=== PATIENT | female | born 1960 | race Caucasian/White ===

== ENCOUNTER 2016-10-21 06:32 | Inpatient (IN) | payer OTHER ==
--- NOTE | ~2016-10-21 | EKG ---
PATIENT: KASHMIR SAUCEDO UNIT #: [id number] Ventricular Rate: 114 BPM Atrial Rate: 114 BPM P-R Interval: 156 ms QRS Duration: 94 ms Q-T Interval: 320 ms QTC Calculation(Bezet): 441 ms P [place]: 40 degrees Calculated R [place]: 5 degrees Calculated T [place]: 41 degrees Diagnosis Line: Sinus tachycardia Diagnosis Line: Low voltage QRS Diagnosis Line: Nonspecific ST abnormality Otherwise normal ECG Diagnosis Line: When compared with ECG of 13-JAN-2014 06:18, Diagnosis Line: Criteria for Septal infarct are no longer Present Diagnosis Line: Confirmed by ALVARO MARTINS MD ([id number]) on 10/22/2016 Diagnosis Line: 12:04:18 PM INTERPRETING MD: ELIEZER REED
--- NOTE | ~2016-10-21 | HP ---
Unit #: [id number] #: [id number] Patient: KASHMIR SAUCEDO [id number] [address] [address] [id number] I MR#: [id number] NAME: KASHMIR SAUCEDO ROOM: 07363 Age: 56 Sex: F Admission Date: 10/21/2016 : 1960 Attending Physician: Lorie Rashid M.D. Primary Care Physician: No Primary Care Physician HISTORY AND PHYSICAL CHIEF COMPLAINT Sick all day, fever. HISTORY OF PRESENT ILLNESS The patient is a 56-year-old female with a past medical history of hypertension, hyperlipidemia, diabetes, Sjogren syndrome, who presented to the emergency department for evaluation of the above. The patient states that she has had a three day history of increasing shortness of breath and nonproductive cough. She also reports fever and chills. She states that she has had some chest discomfort in association with the cough. She denies any vomiting or diarrhea. No urinary symptoms. Upon arrival in the emergency department, the patient's temperature was 102.9, pulse 120, respirations 21, oxygen saturation was 96% on room air. Chest x-ray showed nothing acute but clinically she appears to have pneumonia. She was given Rocephin and azithromycin. Also of note, lactic acid is 2.7. She is being admitted to [facility] for evaluation and further treatment. PAST MEDICAL HISTORY 1. Diabetes. 2. Hypertension. 3. Hyperlipidemia. 4. Sjogren syndrome, maintained on chronic prednisone, followed by a restaurant assistant (the patient doesn't recall the name). PAST SURGICAL HISTORY Hysterectomy. SOCIAL HISTORY The patient lives with her . There is no tobacco or alcohol use. She is unemployed. FAMILY HISTORY Notable for her dad having diabetes. ALLERGIES No known allergies. HOME MEDICATIONS 1. Prednisone 5 mg daily. 2. Zestoretic 20/25 daily. 3. Glipizide 10 mg twice daily. Unit #: [id number] #: [id number] Patient: KASHMIR SAUCEDO 4. Metoprolol 25 mg twice daily. 5. Humalog mix 75/25 twice daily. REVIEW OF SYSTEMS A complete review of systems was negative except as indicated in the HPI. DIAGNOSTIC STUDIES CARDIOVASCULAR: EKG shows sinus tachycardia with a rate of 114 beats per minute. IMAGING: Chest x-ray shows nothing acute. LABORATORY: Troponin is less than 0.05. Rapid flu screen is negative. Complete blood count is notable for platelets of 134. INR is 1. Comprehensive metabolic panel notable for glucose of 212, BNP is 100, lactic acid 2.7. PHYSICAL EXAMINATION VITAL SIGNS: Temperature is 102.9, pulse 120, respirations 21, blood pressure 171/124, most recently 109/53. Oxygen saturation is 96% on room air. GENERAL: The patient is a female who is awake and alert, in no acute distress. HEENT: The head is atraumatic. Mucous membranes are moist. NECK: Supple. Trachea is midline. CARDIOVASCULAR: Regular rate and rhythm. LUNGS: Demonstrate very few scattered rhonchi. Breathing is not labored with conversation. ABDOMEN: Soft, nontender with bowel sounds present in all four quadrants. EXTREMITIES: Nontender with no pedal edema. NEURO: The patient is awake and alert. She follows commands. PSYCH: Mood and affect are normal. The patient is cooperative. SKIN: Skin of examined areas is warm and dry. ASSESSMENT The patient is a 56-year-old female with: 1. Pneumonia, community-acquired: The patient received Rocephin and azithromycin in the emergency department. 2. Sepsis with lactic acid of 2.7: The patient received 2 L of normal saline in the emergency department. 3. Hypertension. 4. Hyperlipidemia. 5. Diabetes. 6. Sjorgren syndrome, maintained on chronic prednisone. 7. Morbid obesity with a body mass index of 44 present on admission. PLAN 1. Admit to intermediate level. 2. Healthy heart consistent carb diet. 3. Blood culture x2. 4. Sputum culture and sensitivity. 5. Oxygen 2 to 4 L to maintain saturations greater than 92%. 6. Procalcitonin level. 7. Rocephin and azithromycin for community-acquired pneumonia pending further workup. 8. Duo-Nebs. Unit #: [id number] #: [id number] Patient: KASHMIR SAUCEDO 9. Mucinex 600 mg p.o. b.i.d. 10. Serial cardiac enzymes. 11. Hemoglobin A1c. 12. Low dose sliding scale insulin with Accu-Cheks. 13. Sepsis protocol with repeat lactic acid. 14. SCDs for DVT prophylaxis. 15. Additional workup and consultants based on above. 16. Repeat labs in the morning. Dictated by Caroline Mireles/shaka TD: 10/21/2016 12:05 JOB #: [id number] HISTORY AND PHYSICAL X Lorie Rashid MD HISTORY AND PHYSICAL
--- NOTE | ~2016-10-21 | CT16 ---
[facility] A Service of [facility] [place] RADIOLOGY TEXT RESULTS PATIENT: KASHMIR SAUCEDO LOCATION: [facility] : 60 UNIT #: [id number] AGE: [address]: JEAN PAUL MEDINA MD SEX: F ORDER DR: [id number] [place], [place] [address] [id number] I MR#: [id number] #: [id number] NAME: KASHMIR SAUCEDO : 1960 SEX: F STUDY DATE/TIME: 10/22/2016 18:26 UNIT: [facility] PCU ROOM: [facility] STUDY DESCRIPTION: CT Angio Chest for PE Attending Physician: Jean Paul Medina M.D. Ordering Physician: Long Rodriguez M.D. Primary Care Physician: Primary Care Physician No MEDICAL IMAGING REPORT This report is preliminary unless electronic signature is present EXAM CTA chest PE protocol INDICATION Shortness of air. Fever for the past 4 days. PROCEDURE Contrast-enhanced CTA of the chest attention on opacification of the pulmonary arteries. Coronal 3-D MIP and sagittal reformatted images were reconstructed and submitted. 80 mL of Isovue-370. COMPARISON None. TECHNIQUE This CT examination was performed with one or more of the following radiation dose reduction techniques: automatic exposure control, adjustment of mA and/or kV according to patient size, and iterative reconstruction. FINDINGS No evidence for pulmonary embolus. No evidence for acute aortic injury. No adenopathy. Probable hepatic steatosis. No acute findings in the included upper abdomen. No aggressive appearing bone lesion. No dense consolidation. IMPRESSION 1. No acute findings in the chest. No evidence for pulmonary embolus. 2. Suspected hepatic steatosis. Dictated by... Ernie Dash M.D. [facility] A Service [facility] RADIOLOGY TEXT RESULTS PATIENT: KASHMIR SAUCEDO LOCATION: [facility] : 60 UNIT #: [id number] AGE: [address]: JEAN PAUL MEDINA MD SEX: F ORDER DR: THIS IS AN ELECTRONICALLY VERIFIED REPORT Ernie Dash M.D. at 10/25/2016 7:22 AM ANNIE/yesika TD: 10/23/2016 12:24 JOB #: [id number] MEDICAL IMAGING REPORT COPY
--- NOTE | ~2016-10-21 | CO ---
Unit #: [id number] #: [id number] Patient: KASHMIR FELIX [id number] [address] [place], [place] [address] [id number] I MR#: [id number] NAME: KASHMIR FELIX ROOM: 312 Age: 56 Sex: F Admission Date: 10/21/2016 : 1960 Attending Physician: Amy Medina M.D. CONSULTATION REPORT HISTORY OF PRESENT ILLNESS Ms. Felix is a 56-year-old white female, who presented because of fever, cough, congestion, shortness of breath with wheezing that has been worse over the last 2 days. She says that she had been somewhat ill over the last few days, but worsened over the last 3 days. She says she has had some wheezing. She has a history of Sjogren syndrome is maintained on chronic prednisone. She says that her child has been ill with a similar upper respiratory and respiratory illness as has her son. In the emergency room, temperature is recorded at 102.9, pulse was 120, respiratory rate was 21, room air saturation was 96%. Chest x-ray showed somewhat small lung lehman, no gross consolidation, radiologist read has some increased markings. Lactic acid was 2.7. Procalcitonin was 0.22. White blood cell count was 5700, platelet count was 134 it has dropped to 112 today and white blood cell count has dropped to 3.5 today. There were 20% monocytes listed, 4% bands were noted. Influenza A and B were negative. PAST MEDICAL HISTORY Significant for diabetes, hypertension, hyperlipidemia. Sjogren syndrome maintained on prednisone 5 mg daily, followed by asset protection assistant, she does not know the name. PAST SURGICAL HISTORY Hysterectomy. ALLERGIES None known. HOME MEDICATIONS Prednisone 5 mg daily, Zestoretic, glipizide, metoprolol, and Humalog Mix. FAMILY HISTORY Notable for diabetes. SOCIAL HISTORY Lives with . No tobacco or alcohol or illicit drugs. She is currently unemployed. REVIEW OF SYSTEMS Ten point system, otherwise negative than in HPI. She denied snoring except occasionally on her back. Denied excessive daytime sleepiness or witnessed apneic episodes. PHYSICAL EXAMINATION Unit #: [id number] #: [id number] Patient: KASHMIR FELIX GENERAL: Obese female, in no distress. VITAL SIGNS: Blood pressure is 151/80, pulse is 84, respiratory rate is 18, afebrile, T-max 102.7, currently 98.6. HEENT: Normocephalic and atraumatic. Pupils are equal, round, and reactive. Sclerae nonicteric. Nasal passages patent. Posterior pharynx crowded. Mallampati IV. NECK: Thick, supple, trachea midline. No cervical or supraclavicular lymphadenopathy. LUNGS: Reveal some crackles in the bases. Slightly prolonged expiratory phase. No wheezing. CARDIAC: Regular rate and rhythm. Could not appreciate murmur, rub, or gallop. ABDOMEN: Nontender. Bowel sounds present. No hepatosplenomegaly. EXTREMITIES: Without clubbing, cyanosis, or edema. NEUROLOGIC: Awake, alert, and oriented x3. Cranial nerves grossly intact. Muscle strength symmetric. SKIN: Warm and dry. NEUROLOGIC: Affect calm. No swollen joints. DIAGNOSTIC STUDIES LABORATORY RESULTS: As noted. IMPRESSION 1. Possible pneumonia. 2. History of asthma apparently with history of bronchospasm, but was not noted on emergency room note. 3. Probable sepsis syndrome. 4. Sjogren syndrome, on chronic prednisone. 5. Hypertension. 6. Morbid obesity. 7. Possible obstructive sleep apnea with markedly elevated BMI, large neck size, and upper airway consistent with sleep apnea, although she denies symptoms. PLAN Would agree with broad-spectrum antibiotics. Doubt MRSA as the organism. Would be more concerned about atypical organisms and virus, but okay to go on and cover for MRSA. At this time, we would also cover for Legionella with Levaquin. We will check antigens for strep and Legionella, check respiratory virus panel. She has been scheduled for chest CT scan to see if there are any ground glass infiltrates that are not really evident on current chest x-ray. We will cover with stress steroids and Solu-Cortef. Agree with DVT prophylaxis. We will make further recommendations pending this. Dictated by... Long Rodriguez M.D. DURAN/anthony TD: 10/23/2016 02:06 JOB #: [id number] Unit #: [id number] #: [id number] Patient: LEWISKASHMIR CONSULTATION REPORT X Long Rodriguez MD CONSULTATION REPORT
--- NOTE | ~2016-10-21 | BMI ---
[facility] Nutrition Therapy DATE: 10/22/16 Patient: KASHMIR BROWNEWALDOArmaan Physician: PETEY Address: [address] [place] [address] Room/Bed: [address] [place] [address], Zip: [place] [address] Admit Date: 10/21/16 Date of : [birth year] Height: 5 2 Weight: 246 111.6 HIGH BMI NOTE: ANTHROPOMETRICS: HT: 62" WT: 111.6 KG BMI: 45 INTERVENTION: 1. NPO RECOMMENDATIONS: 1. ONCE MEDICALLY FEASIBLE ADVANCE THE PT TO A HH/CC DIET TO PROMOTE GRADUAL WEIGHT LOSS. Respectfully, SHAUN GRANT RD, LD [employer] and [employer] Services [facility] cc: client file
--- NOTE | ~2016-10-21 | CR72 ---
[facility] A Service of [facility] RADIOLOGY TEXT RESULTS PATIENT: KASHMIR SAUCEDO LOCATION: [facility] 312-01 : 60 UNIT #: [id number] AGE: [address]: Lorie Rashid MD SEX: F ORDER DR: [id number] [facility] [address] [facility]. [place], [place] [address] [id number] I MR#: [id number] Acc #: [id number] NAME: KASHMIR SAUCEDO : 1960 SEX: F STUDY DATE/TIME: 10/21/2016 6:30 UNIT: CEDOF ROOM: 13077 STUDY DESCRIPTION: CR Chest Single View Portable Attending Physician: Lorie Rashid M.D. Ordering Physician: Fransisco Lunsford M.D. Primary Care Physician: Primary Care Physician No MEDICAL IMAGING REPORT This report is preliminary unless electronic signature is present EXAM Portable chest 1 view 10/21/2016 COMPARISON 01/13/2014. HISTORY Dyspnea, short of air and cough for 2 days. Fever. FINDINGS Submaximal inspiration. Mild interstitial prominence, though whether that is related to inspiratory effort is unclear. There is no consolidation, effusion or pneumothorax. Heart size upper limits normal. Dictated by... Srikanth Lee M.D. THIS IS AN ELECTRONICALLY VERIFIED REPORT Srikanth Lee M.D. at 10/21/2016 3:35 PM ARI/yesika TD: 10/21/2016 12:52 JOB #: [id number] MEDICAL IMAGING REPORT COPY
--- NOTE | ~2016-10-21 | DS ---
Unit #: [id number] #: [id number] Patient: KASHMIR SAUCEDO [id number] [address] [address] [id number] I MR#: [id number] NAME: KASHMIR SAUCEDO ROOM: 312 Age: 56 Sex: F Admission Date: 10/21/2016 : 1960 Discharge Date: Attending Physician: Airam Flores M.D. Primary Care Physician: No Primary Care Physician DISCHARGE SUMMARY DISCHARGE DIAGNOSES 1. Acute viral syndrome. 2. Sepsis, resolved. 3. Asthma with exacerbation with bronchospasm. 4. Acute bronchitis. 5. No pneumonia. 6. Hypertension. 7. Hyperlipidemia. 8. Diabetes mellitus type 2. 9. Sjogren syndrome. 10. Morbid obesity. 11. Possible obstructive sleep apnea. CONSULTATIONS Dr. Rodriguez. PROCEDURES None. DIAGNOSTIC TESTING LAB DATA: Glucose 183. Sputum culture growing normal respiratory grisel. Urine culture negative. Sodium 138, potassium 3.5, creatinine 0.7. IMAGING: CT angiogram of chest shows no acute findings. ALLERGIES None. DISCHARGE MEDICATIONS 1. Prednisone tapering dose. After completing tapering dose, the patient needs to go back to 5 mg p.o. daily, which is her home dose. 2. Lisinopril/Hydrochlorothiazide 20/25 mg 1 table p.o. daily. 3. Lopressor 25 p.o. b.i.d. 4. Humalog mix 75/25 pen 20 units subcu b.i.d. 5. Zithromax 250 mg p.o. daily. 6. Glipizide 10 mg p.o. b.i.d. 7. Albuterol MDI 2 puffs inhalation q.i.d. p.r.n. shortness of breath. 8. Breo Ellipta 25/100 one inhalation daily. HOSPITALIZATION COURSE A 56 year old admitted because of shortness of breath and fever. Viral syndrome. The patient initially diagnosed with pneumonia, but CT scan and x-ray did not show any pneumonia. The patient was started on Unit #: [id number] #: [id number] Patient: KASHMIR SAUCEDO Rocephin and Zithromax. Her influenza antigens are negative; thus, she received Tamiflu in the beginning. Most likely viral syndrome, which has resolved. Sepsis, present on admission. Resolved. Asthma with exacerbation. Started on IV Solu-Medrol and albuterol. Currently better. Acute bronchitis. Started on azithromycin and albuterol. Currently breathing better. No wheezing. Continue with prednisone tapering dose, Zithromax and albuterol. The patient has Sjogren syndrome. She will continue following with her reverse unit operator. She will continue with her prednisone 5 mg, which is her home dose, after she completes her tapering dose of prednisone. The patient has possible obstructive sleep apnea. Seen by Dr. Rodriguez. He recommends outpatient sleep study, but the patient does not want evaluation for obstructive sleep apnea. She wants to follow her primary physician. DISCHARGE PLAN 1. The patient will be discharged home. 2. Follow with family physician in 1 week. 3. Follow with Dr. Rodriguez in 4 weeks, p.r.n. Dictated by... Caroline Estrella/naseem TD: 10/25/2016 16:07 JOB #: [id number] DISCHARGE SUMMARY X Airam Flores MD DISCHARGE SUMMARY
[2016-10-21 06:19] LABS: POC - CKMB <1.0 ng/mL (0.0-7.9); POC - TROPONIN <0.05 ng/mL (<=0.05)
[~2016-10-21 06:32] MED LIST: ALBUTEROL17 G1 IH; AMOXICILLIN500 M1 PO; AZITHROMYCIN250 MG PO; DOXYCYCLINE HYC20 MG PO; IBUPROFEN800 MG PO; LISINOPRIL10 MG PO; MEDROL4 MG/DOSE- PO; METFORMIN HCL500 M1 PO; PREDNISONE PO
[2016-10-21 06:54] LABS: BASOPHIL% 0.6 % (0-2.5); EOSINOPHIL% 0.6 % (0.0-7.0); HEMATOCRIT 37.6 % (35.0-45.0); HEMOGLOBIN 12.7 gm/dL (12.0-16.0); LYMPHOCYTE# 0.7 X10e3 (1.0-3.5); MEAN CELL VOLUME 92.4 FL (83-96); MEAN CORPUSCULAR HEMOGLOBIN 31.2 PG (28-34); MEAN CORPUSCULAR HGB CONC 33.7 g/dL (30-36); MEAN PLATELET VOLUME 9.4 FL (6.5-11.5); MONOCYTE# 0.9 X10e3 (0-1.0); MONOCYTE% 15.1 % (3.0-12.0); NEUTROPHIL# 4.1 X10e3 (1.5-7.1); NEUTROPHIL% 71.7 % (40-75); PLATELET COUNT 134 X10e3 (140-420); RED BLOOD COUNT 4.07 X10e (3.90-5.30); RED CELL DISTRIBUTION WIDTH 13.2 % (11.0-15.5); WHITE BLOOD COUNT 5.7 X10e3 (4.0-10.5)
[2016-10-21 07:06] LABS: INFLUENZA A NEG (NEG); INFLUENZA B NEG (NEG)
[2016-10-21 07:06] LABS: PROTHROMBIN TIME (PATIENT) 10.6 SECONDS (9.6-11.5)
[2016-10-21 07:08] LABS: DIFF IND NO
[2016-10-21 07:34] LABS: ALBUMIN SERUM 3.7 g/dL (3.5-5.0); ALKALINE PHOSPHATASE 89 U/L (32-92); ALT (SGPT) 35 U/L (10-40); AST (SGOT) 40 U/L (10-42); BILIRUBIN, DIRECT 0.1 mg/dL (0.0-0.2); BILIRUBIN,INDIRECT 0.4 mg/dL (0.0-0.9); BILIRUBIN,TOTAL 0.5 mg/dL (0.2-2.0); BLOOD UREA NITROGEN 16 mg/dL (9-23); BUN/CREATININE RATIO 17.77; CARBON DIOXIDE 24 mmol/L (22-31); CHLORIDE 102 mmol/L (100-111); CREATININE SERUM 0.9 mg/dL (0.6-1.4); GLOM FILT RATE Estimated ABOVE60 mL/min (>60); GLUCOSE FASTING 212 mg/dL (70-110); POTASSIUM 3.5 mmol/L (3.5-5.1); SODIUM 138 mmol/L (135-145)
[2016-10-21 08:13] LABS: POC - CKMB <1.0 ng/mL (0.0-7.9); POC - TROPONIN <0.05 ng/mL (<=0.05)
[2016-10-21] MEDS ORDERED: ZESTORETIC 20/21 TAB PO (08:52)
[2016-10-21] MEDS ORDERED: PREDNISONE5 M1 PO (08:52)
[2016-10-21] MEDS ORDERED: METOPROLOL TAR25 MG PO (08:52)
[2016-10-21] MEDS ORDERED: GLIPIZIDE10 MG PO (08:52)
[2016-10-21] MEDS ORDERED: HUMALOG MI100 UNIT/1 SUBQ (08:53)
[2016-10-21 16:43] LABS: %MB 0.3 % (0.0-4.0)
[2016-10-21 20:57] LABS: %MB 0.3 % (0.0-4.0); MB 1.8 ng/ml
[2016-10-22 07:33] LABS: BASOPHIL% 0.5 % (0-2.5); EOSINOPHIL% 0.1 % (0.0-7.0); HEMATOCRIT 33.6 % (35.0-45.0); HEMOGLOBIN 11.2 gm/dL (12.0-16.0); LYMPHOCYTE# 0.5 X10e3 (1.0-3.5); LYMPHOCYTE% 15.4 % (17.0-45.0); MEAN CORPUSCULAR HEMOGLOBIN 31.2 PG (28-34); MEAN CORPUSCULAR HGB CONC 33.2 g/dL (30-36); MEAN PLATELET VOLUME 9.6 FL (6.5-11.5); MONOCYTE# 0.7 X10e3 (0-1.0); MONOCYTE% 20.5 % (3.0-12.0); NEUTROPHIL# 2.2 X10e3 (1.5-7.1); NEUTROPHIL% 63.5 % (40-75); PLATELET COUNT 112 X10e3 (140-420); RED BLOOD COUNT 3.57 X10e (3.90-5.30); RED CELL DISTRIBUTION WIDTH 13.3 % (11.0-15.5); WHITE BLOOD COUNT 3.5 X10e3 (4.0-10.5)
[2016-10-22 07:36] LABS: DIFF IND YES
[2016-10-22 07:58] LABS: ALBUMIN SERUM 3.2 g/dL (3.5-5.0); ALKALINE PHOSPHATASE 75 U/L (32-92); ALT (SGPT) 43 U/L (10-40); AST (SGOT) 66 U/L (10-42); BILIRUBIN,TOTAL 0.2 mg/dL (0.2-2.0); BLOOD UREA NITROGEN 12 mg/dL (9-23); CALCIUM SERUM 8.4 mg/dL (8.4-10.2); CARBON DIOXIDE 22 mmol/L (22-31); CHLORIDE 106 mmol/L (100-111); CREATININE SERUM 0.8 mg/dL (0.6-1.4); GLOM FILT RATE Estimated ABOVE60 mL/min (>60); GLUCOSE FASTING 204 mg/dL (70-110); POTASSIUM 3.7 mmol/L (3.5-5.1); PROTEIN TOTAL SERUM 5.9 g/dL (6.0-8.3); SODIUM 135 mmol/L (135-145)
[2016-10-22 08:44] LABS: PLATELET ESTIMATE DECREASED (NORMAL)
[2016-10-22 08:47] LABS: RBC NORMAL YES
[2016-10-23 06:32] LABS: HEMATOCRIT 35.2 % (35.0-45.0); HEMOGLOBIN 11.6 gm/dL (12.0-16.0); MEAN CELL VOLUME 93.5 FL (83-96); MEAN CORPUSCULAR HEMOGLOBIN 30.9 PG (28-34); MEAN CORPUSCULAR HGB CONC 33.1 g/dL (30-36); MEAN PLATELET VOLUME 9.6 FL (6.5-11.5); RED BLOOD COUNT 3.77 X10e (3.90-5.30); RED CELL DISTRIBUTION WIDTH 13.3 % (11.0-15.5); WHITE BLOOD COUNT 2.6 X10e3 (4.0-10.5)
[2016-10-23 07:06] LABS: ALBUMIN SERUM 3.2 g/dL (3.5-5.0); ALKALINE PHOSPHATASE 69 U/L (32-92); ALT (SGPT) 54 U/L (10-40); AST (SGOT) 72 U/L (10-42); BILIRUBIN,TOTAL 0.5 mg/dL (0.2-2.0); BLOOD UREA NITROGEN 11 mg/dL (9-23); BUN/CREATININE RATIO 15.71; CALCIUM SERUM 8.7 mg/dL (8.4-10.2); CARBON DIOXIDE 22 mmol/L (22-31); CHLORIDE 104 mmol/L (100-111); CREATININE SERUM 0.7 mg/dL (0.6-1.4); GLOM FILT RATE Estimated ABOVE60 mL/min (>60); GLUCOSE FASTING 283 mg/dL (70-110); MAGNESIUM 1.8 mg/dL (1.6-3.0); POTASSIUM 4.3 mmol/L (3.5-5.1); PROTEIN TOTAL SERUM 6.2 g/dL (6.0-8.3); SODIUM 138 mmol/L (135-145)
[2016-10-23 10:15] LABS: URINE SOURCE CLEAN CATCH
[2016-10-23 11:17] LABS: URINE APPEARANCE CLEAR; URINE BILIRUBIN NEG (NEG); URINE BLOOD NEG (NEG); URINE COLOR YELLOW; URINE GLUCOSE >1000 MG/DL (NEG); URINE KETONE 2+ (NEG); URINE LEUKOCYTE ESTERASE NEG (NEG); URINE NITRATE NEG (NEG); URINE PROTEIN NEG (NEG); URINE SPECIFIC GRAVITY 1.021 (1.003-1.035); URINE UROBILINOGEN 0.2 MG/DL (NEG)
[2016-10-24 06:05] LABS: HEMATOCRIT 34.1 % (35.0-45.0); HEMOGLOBIN 11.5 gm/dL (12.0-16.0); MEAN CELL VOLUME 92.4 FL (83-96); MEAN CORPUSCULAR HEMOGLOBIN 31.1 PG (28-34); MEAN CORPUSCULAR HGB CONC 33.6 g/dL (30-36); MEAN PLATELET VOLUME 9.9 FL (6.5-11.5); RED BLOOD COUNT 3.69 X10e (3.90-5.30)
[2016-10-24 06:48] LABS: BLOOD UREA NITROGEN 17 mg/dL (9-23); BUN/CREATININE RATIO 21.25; CALCIUM SERUM 8.9 mg/dL (8.4-10.2); CARBON DIOXIDE 24 mmol/L (22-31); CHLORIDE 103 mmol/L (100-111); CREATININE SERUM 0.8 mg/dL (0.6-1.4); GLOM FILT RATE Estimated ABOVE60 mL/min (>60); GLUCOSE FASTING 173 mg/dL (70-110); POTASSIUM 3.5 mmol/L (3.5-5.1); SODIUM 137 mmol/L (135-145)
[2016-10-25 06:00] LABS: BASOPHIL% 0.3 % (0-2.5); EOSINOPHIL% 0.2 % (0.0-7.0); HEMATOCRIT 37.7 % (35.0-45.0); HEMOGLOBIN 12.5 gm/dL (12.0-16.0); LYMPHOCYTE# 1.7 X10e3 (1.0-3.5); LYMPHOCYTE% 38.9 % (17.0-45.0); MEAN CELL VOLUME 92.9 FL (83-96); MEAN CORPUSCULAR HEMOGLOBIN 30.8 PG (28-34); MEAN CORPUSCULAR HGB CONC 33.2 g/dL (30-36); MEAN PLATELET VOLUME 9.3 FL (6.5-11.5); MONOCYTE# 0.6 X10e3 (0-1.0); MONOCYTE% 13.5 % (3.0-12.0); NEUTROPHIL# 2.1 X10e3 (1.5-7.1); NEUTROPHIL% 47.1 % (40-75); PLATELET COUNT 166 X10e3 (140-420); RED BLOOD COUNT 4.06 X10e (3.90-5.30); WHITE BLOOD COUNT 4.4 X10e3 (4.0-10.5)
[2016-10-25 06:19] LABS: DIFF IND NO
[2016-10-25 06:36] LABS: BLOOD UREA NITROGEN 17 mg/dL (9-23); BUN/CREATININE RATIO 24.28; CALCIUM SERUM 8.7 mg/dL (8.4-10.2); CARBON DIOXIDE 26 mmol/L (22-31); CHLORIDE 103 mmol/L (100-111); CREATININE SERUM 0.7 mg/dL (0.6-1.4); GLOM FILT RATE Estimated ABOVE60 mL/min (>60); GLUCOSE FASTING 110 mg/dL (70-110); POTASSIUM 3.5 mmol/L (3.5-5.1); SODIUM 138 mmol/L (135-145)
[2016-10-25] MEDS ORDERED: PREDNISONE PO (14:23)
[2016-10-25] MEDS ORDERED: AZITHROMYCIN250 MG PO (14:25)
[2016-10-25] MEDS ORDERED: GLIPIZIDE10 MG PO (14:26)
[2016-10-25] MEDS ORDERED: ALBUTEROL20 ml INH (14:27)
[2016-10-25] MEDS ORDERED: BREO ELLIPTA 11 EACH INH (14:28)
== END 2016-10-25 16:30 | disposition home or self-care (01) | DRG 872 ==
LOC: CED 06:32 → CEDOF 08:40 → C3A PCU 14:05
PROVIDERS: Emergency Medicine; Family Medicine; Internal Medicine; Internal Medicine Endocrinology, Diabetes & Metabolism; Nurse Practitioner
PROC: B32TYZZ Computerized Tomography (CT Scan) of Left Pulmonary Artery using Other Contrast (ICD-10-PCS; principal; 2016-10-22)
PROC: B32SYZZ Computerized Tomography (CT Scan) of Right Pulmonary Artery using Other Contrast (ICD-10-PCS; 2016-10-22)
DX: A41.89 Other specified sepsis (principal); Z68.41 Body mass index [BMI] 40.0-44.9, adult; J45.901 Unspecified asthma with (acute) exacerbation; M35.00 Sjogren syndrome, unspecified; E66.01 Morbid (severe) obesity due to excess calories; I10 Essential (primary) hypertension; B34.9 Viral infection, unspecified; J20.9 Acute bronchitis, unspecified; E78.5 Hyperlipidemia, unspecified; E11.9 Type 2 diabetes mellitus without complications; G47.33 Obstructive sleep apnea (adult) (pediatric); Z90.710 Acquired absence of both cervix and uterus; Z79.4 Long term (current) use of insulin; Z79.52 Long term (current) use of systemic steroids
CPT/HCPCS: 36415; 71010; 71275; 80048; 80053; 80076; 80202; 81003; 82308; 82550; 82553; 82947; 83036; 83605; 83735; 83880; 84484; 85025; 85027; 85610; 87040; 87070; 87086; 87205; 87449; 87633; 87804; 87899; 92610; 93005; 94640; 94760; 99291; J0456; J0696; J1720; J1815; J1956; J2543; J3370; Q9967